=== PATIENT | female | born 1965 ===

== ENCOUNTER 2016-10-01 11:57 | Emergency (ER) | payer BC ==
--- NOTE | 2016-10-01 14:06 | UC ---
Throat Pain/Nasal Javi HPI - HPI Summary HPI Summary: complaint of sore throat that started approx 1 week ago nasal congestion and cough that resolved achiness and fever and chills for the first several day taking ibuprofen with some relief vaginal infection and thought it was a yeast infection - chronic yeast infections took diflucan for over a week but it didn't make any difference discharge is itchy with thin yellowish discharge but no foul odor denies dysuria denies abdominal pain, back pain LMP 1.5 weeks ago - History of Current Complaint Chief Complaint: UCRespiratory Stated Complaint: SORE THROAT Time Seen by Provider: 10/01/16 13:42 Hx Obtained From: Patient Hx Last Menstrual Period: 08/04/16 - Allergies/Home Medications Allergies/Adverse Reactions: Allergies Allergy/AdvReac Type Severity Reaction Status Date / Time bee stings Allergy Hives Uncoded 10/01/16 13:38 Home Medications: Home Medications Cetirizine* [ZyrTEC 10 MG TAB*] 10 mg PO DAILY 10/01/16 [History Confirmed 10/01] Tranexamic Acid 1 tab PO TID 10/01/16 [History Confirmed 10/01/16] PMH/Surg Hx/FS Hx/Imm Hx Previously Healthy: Yes - Surgical History Surgical History: Yes Surgery Procedure, Year, and Place: cataracts - Family History Known Family History: Negative: Cardiac Disease, Hypertension, Diabetes - Social History Occupation: Employed Full-time Lives: With Family Alcohol Use: Occasionally Substance Use Type: None Smoking Status (MU): Former Smoker Review of Systems Constitutional: Negative Skin: Negative Eyes: Negative ENT: Sore Throat Respiratory: Negative Cardiovascular: Negative Gastrointestinal: Negative Genitourinary: Other - vaginal discharge Neurovascular: Negative Musculoskeletal: Negative Neurological: Negative All Other Systems Reviewed And Are Negative: Yes Physical Exam Triage Information Reviewed: Yes Appearance: No Pain Distress, Well-Nourished Vital Signs: Initial Vital Signs Temp 97.1 F 10/01/16 13:41 Pulse 63 10/01/16 13:41 Resp 16 10/01/16 13:41 BP 128/89 10/01/16 13:41 Pulse Ox 98 10/01/16 13:41 Vital Signs Reviewed: Yes Eyes: Positive: Conjunctiva Clear ENT: Positive: Pharyngeal erythema, TMs normal, Tonsillar swelling, Tonsillar exudate. Negative: Nasal congestion Dental: Positive: Cervical Lymphadenopathy Respiratory: Positive: Lungs clear, Normal breath sounds, No respiratory distress, No accessory muscle use Cardiovascular: Positive: RRR, No Murmur, Pulses Normal Abdomen Description: Positive: Nontender, No Organomegaly, Soft. Negative: CVA Tenderness (R), CVA Tenderness (L), Distended, Guarding Bowel Sounds: Positive: Present Musculoskeletal: Positive: No Edema Neurological: Positive: Alert Psychological Exam: Normal Skin Exam: Normal - Additional Comments refuses [employer] exam Throat Pain/Nasal Course/Dx - Course Course Of Treatment: exam completed. refuses [employer] exam. will treat for BV, strep throat - Differential Dx/Diagnosis Provider Diagnoses: bacterial vaginosis, strep throat Discharge - Discharge Plan Condition: Stable Disposition: HOME Prescriptions: Penicillin VK TAB 500 MG(NF) [Penicillin VK 500 mg Tab(NF)] 500 mg PO BID #20 tab metroNIDAZOLE VAGINAL 0.75%* 1 applic VAGINAL BEDTIME #1 tube Patient Education Materials: Strep Throat in Children (ED), Bacterial Vaginosis (ED) Referrals: [facility] [place] [facility] [Outside] Additional Instructions: Please start antibiotic and flagyl suppositories as directed Increase fluids and rest Take acetaminophen or ibuprofen for fever or pain Please review your discharge instructions. If your symptoms do not improve please call your primary care provider or return to urgent care
== END 2016-10-01 14:33 | disposition home or self-care (01) ==
LOC: UCEAST 11:57
DX: J02.0 Streptococcal pharyngitis (principal); N76.0 Acute vaginitis; Z87.891 Personal history of nicotine dependence
CPT/HCPCS: 87480; 87510; 87651; 87660; 87661; 99202; G0463

== ENCOUNTER 2020-07-12 15:51 | Observation (INO) ==
[2020-07-12] MEDS ORDERED: Iohexol 300 (CONTRAST) 10 ML SDV IV ONE (19:06)
[2020-07-12] MEDS ORDERED: Ondansetron 4 mg VIAL 2 MG/ML 2 ml VIAL IV ONE (19:26)
[2020-07-12] MEDS ORDERED: NS 0.9% 1000 ml BAG 2,000 ML IV ONE (19:26)
[2020-07-12 19:54] LABS: ABS Eosinophils 0.1 10^3/ul (0-0.6); ABS Lymphocytes 1.2 10^3/ul (1.0-4.8); ABS Monocytes 1.4 10^3/ul (0-0.8); ABS Neutrophils 12.8 10^3/ul (1.5-7.7); Eosinophil % 0.6 %; Hematocrit 33 % (35-47); Hemoglobin 10.9 g/dL (12.0-16.0); Mean Corpuscular HGB Conc 33 g/dL (31-36); Mean Corpuscular Hemoglobin 30 pg (27-31); Mean Corpuscular Volume 90 fL (80-97); Mean Platelet Volume 7.1 fL (7.4-10.4); Platelet Count 432 10^3/uL (150-450); Red Blood Count 3.64 10^6 /uL (3.70-4.87); Red Cell Distribution Width 14 % (10-15); White Blood Count 15.5 10^3/uL (3.5-10.8)
[2020-07-12] MEDS ORDERED: methylPREDNISolone SOD 40 mg/ml 1 ml VIAL IV ONE (20:38)
[2020-07-12] MEDS ORDERED: Ondansetron 4 mg VIAL 2 MG/ML 2 ml VIAL IV PRN (22:11)
[2020-07-12] MEDS ORDERED: methylPREDNISolone SOD 40 mg/ml 1 ml VIAL IV SCH (23:00)
[2020-07-13] MEDS: Morphine 2 MG/ML SYRINGE IV PRN ×5 (01:00→21:33)
[2020-07-13] MEDS: NS 0.9% 1000 ml BAG 1,000 ML IV SCH ×2 (02:37→16:26)
[2020-07-13 04:41] LABS: ABS Lymphocytes 0.6 10^3/ul (1.0-4.8); ABS Monocytes 0.5 10^3/ul (0-0.8); ABS Neutrophils 11.7 10^3/ul (1.5-7.7); Hematocrit 32 % (35-47); Hemoglobin 10.6 g/dL (12.0-16.0); Mean Corpuscular HGB Conc 33 g/dL (31-36); Mean Corpuscular Hemoglobin 30 pg (27-31); Mean Corpuscular Volume 89 fL (80-97); Mean Platelet Volume 7.1 fL (7.4-10.4); Platelet Count 397 10^3/uL (150-450); Red Blood Count 3.55 10^6 /uL (3.70-4.87); Red Cell Distribution Width 13 % (10-15); White Blood Count 12.8 10^3/uL (3.5-10.8)
[2020-07-13 04:47] LABS: INR 1.3 (0.82-1.09)
[2020-07-13 05:00] LABS: BUN/Creatinine Ratio 9.7 (8-20); Calcium 8.7 mg/dL (8.6-10.3); EGFR African American 121.4 (>60); EGFR Non-African American 100.3 (>60)
[2020-07-13] MEDS: methylPREDNISolone SOD 40 mg/ml 1 ml VIAL IV SCH ×2 (08:41→21:32)
[2020-07-13 09:22] LABS: C Reactive Protein 152.65 mg/L (<8.01)
[2020-07-13 15:13] LABS: Hepatitis C Antibody Negative (Negative)
[2020-07-14] MEDS: NS 0.9% 1000 ml BAG 1,000 ML IV SCH ×2 (02:33→16:15)
[2020-07-14] MEDS: Morphine 2 MG/ML SYRINGE IV PRN (03:48)
[2020-07-14] MEDS: methylPREDNISolone SOD 40 mg/ml 1 ml VIAL IV SCH (10:03)
[2020-07-14] MEDS ORDERED: methylPREDNISolone SOD 40 mg/ml 1 ml VIAL IV ONE (17:00)
[2020-07-14 18:24] VITALS: BP 118/70
[2020-07-15 14:01] LABS: CMV DNA DETECT/QT, P Undetected IU/mL (Undetected)
[2020-07-15 16:32] LABS: Hepatitis C Genotype Undetected (Undetected)
== END 2020-07-14 19:45 | disposition home or self-care (01) ==
LOC: MEDTELE 15:51 → ED 15:51 → MEDTELE 07-13 02:20
PROVIDERS: ADMIT Internal Medicine; ATTEND Pediatrics

== ENCOUNTER 2020-07-16 15:52 | Inpatient (IN) ==
[2020-07-16 17:25] LABS: Hematocrit 31 % (35-47); Hemoglobin 10.6 g/dL (12.0-16.0); Mean Corpuscular HGB Conc 35 g/dL (31-36); Mean Corpuscular Hemoglobin 31 pg (27-31); Mean Corpuscular Volume 89 fL (80-97); Mean Platelet Volume 6.8 fL (7.4-10.4); Platelet Count 524 10^3/uL (150-450); Red Blood Count 3.44 10^6 /uL (3.70-4.87); Red Cell Distribution Width 14 % (10-15); White Blood Count 12.7 10^3/uL (3.5-10.8)
[2020-07-16 17:26] LABS: ABS Lymphocytes 0.8 10^3/ul (1.0-4.8); ABS Monocytes 1.9 10^3/ul (0-0.8); Lymphocyte % 6.3 %
[2020-07-16] MEDS ORDERED: Morphine 4 MG/ML VIAL (1 ml) IV ONE (17:42)
[2020-07-16 17:43] LABS: Albumin 2.8 g/dL (3.2-5.2); Albumin/Globulin Ratio 0.9 (1-3); C Reactive Protein 134.15 mg/L (<8.01); Calcium 8.5 mg/dL (8.6-10.3); EGFR African American 100.5 (>60); EGFR Non-African American 83.1 (>60); Potassium 3.8 mmol/L (3.5-5.0); Total Bilirubin 0.3 mg/dL (0.2-1.0); Total Protein 5.8 g/dL (6.4-8.9)
[2020-07-16] MEDS ORDERED: methylPREDNISolone SOD 40 mg/ml 1 ml VIAL IV ONE (17:52)
[2020-07-16] MEDS: NS 0.9% 1000 ml BAG 1,000 ML IV SCH (21:36)
[2020-07-16] MEDS: Morphine 2 MG/ML SYRINGE IV PRN ×2 (21:45→23:50)
[2020-07-16] MEDS: Enoxaparin 40 MG/0.4 ML SYR SUBCUT SCH (21:45)
[2020-07-17] MEDS: Morphine 2 MG/ML SYRINGE IV PRN ×6 (03:13→20:55)
[2020-07-17 06:51] LABS: Hematocrit 30 % (35-47); Hemoglobin 10.3 g/dL (12.0-16.0); Mean Corpuscular HGB Conc 34 g/dL (31-36); Mean Corpuscular Hemoglobin 31 pg (27-31); Mean Corpuscular Volume 90 fL (80-97); Platelet Count 516 10^3/uL (150-450); Red Blood Count 3.36 10^6 /uL (3.70-4.87); Red Cell Distribution Width 14 % (10-15); White Blood Count 10.6 10^3/uL (3.5-10.8)
[2020-07-17 06:59] LABS: ABS Monocytes 1.7 10^3/ul (0-0.8); ABS Neutrophils 7.9 10^3/ul (1.5-7.7); Eosinophil % 0.1 %; Lymphocyte % 9.8 %
[2020-07-17 07:08] LABS: BUN/Creatinine Ratio 12.9 (8-20); C Reactive Protein 128.35 mg/L (<8.01); Calcium 8.2 mg/dL (8.6-10.3); EGFR African American 121.4 (>60); EGFR Non-African American 100.3 (>60); Potassium 3.8 mmol/L (3.5-5.0)
[2020-07-17] MEDS ORDERED: methylPREDNISolone SOD 40 mg/ml 1 ml VIAL IV SCH (09:00)
[2020-07-17] MEDS: NS 0.9% 1000 ml BAG 1,000 ML IV SCH (09:16)
[2020-07-17] MEDS: methylPREDNISolone SOD 40 mg/ml 1 ml VIAL IV SCH ×2 (13:21→20:54)
[2020-07-17 15:42] LABS: Urine Appearance Clear; Urine Bilirubin Negative (Negative); Urine Blood Negative (Negative); Urine Color Yellow; Urine Glucose Negative (Negative); Urine Ketones Negative (Negative); Urine Nitrite Negative (Negative); Urine Protein Negative (Negative); Urine Urobilinogen Negative (Negative)
[2020-07-17] MEDS ORDERED: Polyethylene Glycol 3350 17 GM PACKET PO PRN (16:10)
[2020-07-17] MEDS: Enoxaparin 40 MG/0.4 ML SYR SUBCUT SCH (20:51)
[2020-07-18] MEDS: Morphine 2 MG/ML SYRINGE IV PRN ×5 (02:07→20:56)
[2020-07-18 05:30] LABS: Hematocrit 32 % (35-47); Hemoglobin 10.6 g/dL (12.0-16.0); Mean Corpuscular HGB Conc 33 g/dL (31-36); Mean Corpuscular Hemoglobin 30 pg (27-31); Mean Corpuscular Volume 89 fL (80-97); Platelet Count 609 10^3/uL (150-450); Red Blood Count 3.58 10^6 /uL (3.70-4.87); Red Cell Distribution Width 14 % (10-15); White Blood Count 12.6 10^3/uL (3.5-10.8)
[2020-07-18] MEDS: methylPREDNISolone SOD 40 mg/ml 1 ml VIAL IV SCH ×3 (09:41→22:13)
[2020-07-18 15:32] LABS: Hepatitis B Surface Antigen Nonreactive (Nonreactive)
[2020-07-18] MEDS: Enoxaparin 40 MG/0.4 ML SYR SUBCUT SCH (20:07)
[2020-07-19] MEDS: Morphine 2 MG/ML SYRINGE IV PRN ×4 (00:12→10:34)
[2020-07-19 05:57] LABS: Hematocrit 31 % (35-47); Hemoglobin 10.3 g/dL (12.0-16.0); Mean Corpuscular HGB Conc 33 g/dL (31-36); Mean Corpuscular Hemoglobin 30 pg (27-31); Mean Corpuscular Volume 91 fL (80-97); Mean Platelet Volume 6.9 fL (7.4-10.4); Platelet Count 635 10^3/uL (150-450); Red Blood Count 3.42 10^6 /uL (3.70-4.87); Red Cell Distribution Width 14 % (10-15); White Blood Count 9.5 10^3/uL (3.5-10.8)
[2020-07-19] MEDS: methylPREDNISolone SOD 40 mg/ml 1 ml VIAL IV SCH ×3 (06:39→22:09)
[2020-07-19 07:02] LABS: ABS Lymphocytes 0.8 10^3/ul (1.0-4.8); ABS Monocytes 1.5 10^3/ul (0-0.8); ABS Neutrophils 7.2 10^3/ul (1.5-7.7); Nucleated Red Blood Cells % 0.1; Polychromasia 1+
[2020-07-19] MEDS: oxyCODONE/Acetamin 5/325 mg TAB PO PRN ×2 (14:24→22:07)
[2020-07-19] MEDS: Enoxaparin 40 MG/0.4 ML SYR SUBCUT SCH (21:20)
[2020-07-20] MEDS: oxyCODONE/Acetamin 5/325 mg TAB PO PRN ×4 (04:18→19:34)
[2020-07-20 05:51] LABS: Hematocrit 31 % (35-47); Hemoglobin 10.5 g/dL (12.0-16.0); Mean Corpuscular HGB Conc 33 g/dL (31-36); Mean Corpuscular Hemoglobin 30 pg (27-31); Mean Corpuscular Volume 91 fL (80-97); Platelet Count 742 10^3/uL (150-450); Red Blood Count 3.47 10^6 /uL (3.70-4.87); Red Cell Distribution Width 14 % (10-15); White Blood Count 10.8 10^3/uL (3.5-10.8)
[2020-07-20 06:13] LABS: C Reactive Protein 83.89 mg/L (<8.01); Calcium 8.7 mg/dL (8.6-10.3); EGFR African American 100.5 (>60); EGFR Non-African American 83.1 (>60); Potassium 4.1 mmol/L (3.5-5.0)
[2020-07-20 06:27] LABS: ABS Lymphocytes 0.9 10^3/ul (1.0-4.8); ABS Monocytes 1.3 10^3/ul (0-0.8); ABS Neutrophils 8.5 10^3/ul (1.5-7.7); Lymphocyte % 8.6 %
[2020-07-20] MEDS: methylPREDNISolone SOD 40 mg/ml 1 ml VIAL IV SCH ×3 (07:00→22:30)
[2020-07-20] MEDS: Enoxaparin 40 MG/0.4 ML SYR SUBCUT SCH (18:17)
[2020-07-20] MEDS ORDERED: Morphine 2 MG/ML SYRINGE IV PRN (18:58)
[2020-07-20] MEDS ORDERED: oxyCODONE/Acetamin 5/325 mg TAB PO PRN (23:46)
[2020-07-21] MEDS: methylPREDNISolone SOD 40 mg/ml 1 ml VIAL IV SCH ×3 (07:41→20:35)
[2020-07-21 10:34] LABS: Hematocrit 33 % (35-47); Hemoglobin 10.7 g/dL (12.0-16.0); Mean Corpuscular HGB Conc 33 g/dL (31-36); Mean Corpuscular Hemoglobin 29 pg (27-31); Mean Corpuscular Volume 90 fL (80-97); Mean Platelet Volume 6.9 fL (7.4-10.4); Platelet Count 741 10^3/uL (150-450); Red Blood Count 3.67 10^6 /uL (3.70-4.87); Red Cell Distribution Width 14 % (10-15); White Blood Count 13.2 10^3/uL (3.5-10.8)
[2020-07-21] MEDS ORDERED: inFLIXimab-DYYB (Inflectra) 100 MG/10 ML VIAL IVPB ONE (11:29)
[2020-07-21] MEDS: oxyCODONE/Acetamin 5/325 mg TAB PO PRN ×3 (11:50→20:34)
[2020-07-21] MEDS ORDERED: INFLIXIMAB DYYB IVPB ONE (12:00)
[2020-07-21] MEDS ORDERED: NS 0.9% IVPB ONE (12:00)
[2020-07-21 12:16] LABS: ABS Lymphocytes 0.9 10^3/ul (1.0-4.8); ABS Monocytes 1.1 10^3/ul (0-0.8); ABS Neutrophils 11.2 10^3/ul (1.5-7.7); Eosinophil % 0.1 %; Lymphocyte % 7.1 %; Nucleated Red Blood Cells % 0.1
[2020-07-21] MEDS: Enoxaparin 40 MG/0.4 ML SYR SUBCUT SCH (18:03)
[2020-07-21] MEDS ORDERED: methylPREDNISolone SOD 40 mg/ml 1 ml VIAL IV SCH (18:30)
[2020-07-22] MEDS: oxyCODONE/Acetamin 5/325 mg TAB PO PRN ×5 (01:46→21:30)
[2020-07-22] MEDS: methylPREDNISolone SOD 40 mg/ml 1 ml VIAL IV SCH ×3 (05:23→21:30)
[2020-07-22 07:26] LABS: TB2 Ag minus Nil Result -0.01 IU/mL
[2020-07-22 07:44] LABS: Hematocrit 33 % (35-47); Hemoglobin 11.2 g/dL (12.0-16.0); Mean Corpuscular HGB Conc 34 g/dL (31-36); Mean Corpuscular Hemoglobin 30 pg (27-31); Mean Corpuscular Volume 89 fL (80-97); Platelet Count 760 10^3/uL (150-450); Red Blood Count 3.76 10^6 /uL (3.70-4.87); Red Cell Distribution Width 14 % (10-15); White Blood Count 14.3 10^3/uL (3.5-10.8)
[2020-07-22 08:41] LABS: QuantiferonTb Gold Plus Result Negative (Negative)
[2020-07-22 08:45] LABS: ABS Lymphocytes 1.1 10^3/ul (1.0-4.8); ABS Neutrophils 12.2 10^3/ul (1.5-7.7); Lymphocyte % 7.9 %; Polychromasia 1+
[2020-07-22] MEDS ORDERED: inFLIXimab-DYYB (Inflectra) 100 MG/10 ML VIAL IVPB ONE (11:25)
[2020-07-22] MEDS ORDERED: NS 0.9% IVPB ONE (12:00)
[2020-07-22] MEDS ORDERED: INFLIXIMAB DYYB IVPB ONE (12:00)
[2020-07-22] MEDS: Enoxaparin 40 MG/0.4 ML SYR SUBCUT SCH (19:44)
[2020-07-23] MEDS: oxyCODONE/Acetamin 5/325 mg TAB PO PRN ×5 (02:39→21:40)
[2020-07-23] MEDS: methylPREDNISolone SOD 40 mg/ml 1 ml VIAL IV SCH ×3 (07:39→21:32)
[2020-07-23] MEDS ORDERED: methylPREDNISolone SOD 40 mg/ml 1 ml VIAL IV ONE (08:43)
[2020-07-23] MEDS: oxyCODONE SR 10 mg TAB PO SCH ×2 (09:04→21:33)
[2020-07-23] MEDS: Enoxaparin 40 MG/0.4 ML SYR SUBCUT SCH (21:31)
[2020-07-24] MEDS: oxyCODONE/Acetamin 5/325 mg TAB PO PRN ×7 (00:26→22:27)
[2020-07-24 05:51] LABS: Hematocrit 33 % (35-47); Mean Corpuscular HGB Conc 33 g/dL (31-36); Mean Corpuscular Hemoglobin 30 pg (27-31); Mean Corpuscular Volume 89 fL (80-97); Mean Platelet Volume 6.7 fL (7.4-10.4); Platelet Count 704 10^3/uL (150-450); Red Cell Distribution Width 14 % (10-15); White Blood Count 13.8 10^3/uL (3.5-10.8)
[2020-07-24 06:04] LABS: Albumin 2.8 g/dL (3.2-5.2); Albumin/Globulin Ratio 0.9 (1-3); C Reactive Protein 87.09 mg/L (<8.01); Calcium 8.8 mg/dL (8.6-10.3); EGFR African American 105.5 (>60); EGFR Non-African American 87.2 (>60); Globulin 3.1 g/dL (2-4); Potassium 4.3 mmol/L (3.5-5.0); Total Bilirubin 0.3 mg/dL (0.2-1.0); Total Protein 5.9 g/dL (6.4-8.9)
[2020-07-24] MEDS: methylPREDNISolone SOD 40 mg/ml 1 ml VIAL IV SCH ×3 (06:04→21:30)
[2020-07-24] MEDS: oxyCODONE SR 10 mg TAB PO SCH ×2 (09:02→21:29)
[2020-07-24] MEDS: Enoxaparin 40 MG/0.4 ML SYR SUBCUT SCH (16:14)
[2020-07-24] MEDS ORDERED: NS 0.9% 250 ml 250 ML IV SCH (17:00)
[2020-07-25] MEDS: oxyCODONE/Acetamin 5/325 mg TAB PO PRN ×3 (01:29→07:54)
[2020-07-25] MEDS: methylPREDNISolone SOD 40 mg/ml 1 ml VIAL IV SCH ×3 (05:37→22:47)
[2020-07-25 07:46] LABS: Hematocrit 33 % (35-47); Hemoglobin 11.1 g/dL (12.0-16.0); Mean Corpuscular HGB Conc 34 g/dL (31-36); Mean Corpuscular Hemoglobin 30 pg (27-31); Mean Corpuscular Volume 88 fL (80-97); Mean Platelet Volume 6.5 fL (7.4-10.4); Platelet Count 633 10^3/uL (150-450); Red Blood Count 3.78 10^6 /uL (3.70-4.87); Red Cell Distribution Width 14 % (10-15); White Blood Count 18.4 10^3/uL (3.5-10.8)
[2020-07-25 08:04] LABS: C Reactive Protein 230.19 mg/L (<8.01); Calcium 8.7 mg/dL (8.6-10.3); EGFR African American 103.8 (>60); EGFR Non-African American 85.8 (>60); Potassium 4.2 mmol/L (3.5-5.0)
[2020-07-25] MEDS: oxyCODONE SR 10 mg TAB PO SCH (09:56)
[2020-07-25] MEDS ORDERED: inFLIXimab-DYYB (Inflectra) 100 MG/10 ML VIAL IVPB ONE (10:18)
[2020-07-25] MEDS ORDERED: INFLIXIMAB DYYB IVPB ONE (11:00)
[2020-07-25] MEDS ORDERED: NS 0.9% IVPB ONE (11:00)
[2020-07-25] MEDS ORDERED: Piperacillin/Tazobac ADVAN 3.375 GM in NS 0.9% 100 ml BAG 100 ML IV ONE (11:30)
[2020-07-25] MEDS: NS 0.9% 1000 ml BAG 1,000 ML IV SCH ×2 (11:51→19:35)
[2020-07-25] MEDS ORDERED: Morphine 2 MG/ML SYRINGE IV PRN (12:53)
[2020-07-25] MEDS ORDERED: Midazolam 2 mg/2 ml VIAL 1 mg/ml 2 ml VIAL (2 mg) ONE (13:06)
[2020-07-25] MEDS ORDERED: fentaNYL 250 mcg/5 ml 50 MCG/ML 5 ml VIAL (250 MCG) ONE (13:06)
[2020-07-25] MEDS ORDERED: Rocuronium 50 mg VIAL 10 mg/ml 5 ml VIAL (50 mg) ONE ×3 (13:07→16:50)
[2020-07-25] MEDS ORDERED: Lidocaine 2% PF 5 ML VIAL ONE (13:13)
[2020-07-25] MEDS ORDERED: Propofol 10 MG/ML 20 ML BTL ONE (13:13)
[2020-07-25] MEDS ORDERED: Bupivacaine 0.25% SDV 30 ML ONE (13:36)
[2020-07-25] MEDS ORDERED: Dexamethasone IV 4 MG/ML VIAL 1 ml VIAL ONE (15:06)
[2020-07-25] MEDS ORDERED: HYDROmorphone 1 MG/1 ML SYRINGE ONE ×2 (15:25→18:10)
[2020-07-25] MEDS ORDERED: fentaNYL 100 mcg/2 ml 50 MCG/ML VIAL ONE ×4 (16:14→18:39)
[2020-07-25] MEDS ORDERED: Ondansetron 4 mg VIAL 2 MG/ML 2 ml VIAL ONE (16:57)
[2020-07-25] MEDS ORDERED: Acetaminophen IV 1 GM/100ML 100 ML ONE (16:59)
[2020-07-25] MEDS ORDERED: Ondansetron 4 mg VIAL 2 MG/ML 2 ml VIAL IV PRN (17:45)
[2020-07-25] MEDS ORDERED: Naloxone 0.4 mg VIAL 0.4 mg/ml 1 ml VIAL IV PRN (17:45)
[2020-07-25] MEDS ORDERED: Naloxone 0.4 mg VIAL 0.4 mg/ml 1 ml VIAL IV PUSH PRN (17:55)
[2020-07-25] MEDS: fentaNYL 100 mcg/2 ml 50 MCG/ML VIAL IV PRN ×5 (17:58→18:40)
[2020-07-25] MEDS ORDERED: HYDROmorphone 0.5 MG/0.5 ML SYRINGE IV SLOW PU PRN (18:00)
[2020-07-25] MEDS: HYDROmorphone 1 MG/1 ML SYRINGE IV PRN ×2 (18:12→18:23)
[2020-07-25] MEDS ORDERED: HYDROmorphone PCA 20 MG/20 ML PCA.SYRING PCA SCH (18:30)
[2020-07-25] MEDS ORDERED: ZOSYN 3.375 GM x ONE DOSE over 30 miuntes IV (20:00)
[2020-07-25] MEDS: Enoxaparin 40 MG/0.4 ML SYR SUBCUT SCH (21:47)
[2020-07-25] MEDS: Acetaminophen IV 1 GM/100ML 100 ML IVPB SCH (22:48)
[2020-07-26] MEDS: ZOSYN 3.375 GM Q8H per EXTENDED INFUSION IV SCH ×4 (00:29→23:41)
[2020-07-26 04:57] LABS: ABS Lymphocytes 0.3 10^3/ul (1.0-4.8); ABS Monocytes 0.2 10^3/ul (0-0.8); ABS Neutrophils 19.3 10^3/ul (1.5-7.7); Hematocrit 29 % (35-47); Hemoglobin 9.5 g/dL (12.0-16.0); Lymphocyte % 1.5 %; Mean Corpuscular HGB Conc 32 g/dL (31-36); Mean Corpuscular Hemoglobin 29 pg (27-31); Mean Corpuscular Volume 90 fL (80-97); Mean Platelet Volume 6.7 fL (7.4-10.4); Platelet Count 500 10^3/uL (150-450); Red Blood Count 3.25 10^6 /uL (3.70-4.87); Red Cell Distribution Width 14 % (10-15); White Blood Count 19.8 10^3/uL (3.5-10.8)
[2020-07-26 05:16] LABS: Calcium 7.8 mg/dL (8.6-10.3); EGFR African American 136.5 (>60); EGFR Non-African American 112.8 (>60); Potassium 4.2 mmol/L (3.5-5.0)
[2020-07-26] MEDS: NS 0.9% 1000 ml BAG 1,000 ML IV SCH (05:39)
[2020-07-26] MEDS: Acetaminophen IV 1 GM/100ML 100 ML IVPB SCH ×2 (05:41→14:58)
[2020-07-26] MEDS: methylPREDNISolone SOD 40 mg/ml 1 ml VIAL IV SCH ×2 (05:41→18:04)
[2020-07-26] MEDS ORDERED: NS 0.9% 1000 ml BAG 1,000 ML IV SCH (07:11)
[2020-07-26] MEDS: Enoxaparin 40 MG/0.4 ML SYR SUBCUT SCH (17:40)
[2020-07-27 05:51] LABS: ABS Lymphocytes 0.5 10^3/ul (1.0-4.8); ABS Monocytes 0.5 10^3/ul (0-0.8); ABS Neutrophils 16.6 10^3/ul (1.5-7.7); Hematocrit 24 % (35-47); Lymphocyte % 2.6 %; Mean Corpuscular HGB Conc 33 g/dL (31-36); Mean Corpuscular Hemoglobin 30 pg (27-31); Mean Corpuscular Volume 90 fL (80-97); Mean Platelet Volume 6.6 fL (7.4-10.4); Platelet Count 440 10^3/uL (150-450); Red Cell Distribution Width 14 % (10-15); White Blood Count 17.5 10^3/uL (3.5-10.8)
[2020-07-27] MEDS: methylPREDNISolone SOD 40 mg/ml 1 ml VIAL IV SCH ×2 (06:07→17:18)
[2020-07-27 06:10] LABS: EGFR African American 180.3 (>60); Potassium 4.2 mmol/L (3.5-5.0)
[2020-07-27] MEDS: ZOSYN 3.375 GM Q8H per EXTENDED INFUSION IV SCH ×2 (08:33→16:17)
[2020-07-27] MEDS ORDERED: HYDROcodone/ACETAMIN 5/325 mg TAB PO PRN (09:03)
[2020-07-27] MEDS: Enoxaparin 40 MG/0.4 ML SYR SUBCUT SCH (16:21)
[2020-07-28] MEDS: ZOSYN 3.375 GM Q8H per EXTENDED INFUSION IV SCH ×3 (00:15→16:07)
[2020-07-28] MEDS: HYDROmorphone 0.5 MG/0.5 ML SYRINGE IV SLOW PU PRN (03:42)
[2020-07-28 05:49] LABS: Hematocrit 25 % (35-47); Hemoglobin 8.2 g/dL (12.0-16.0); Mean Corpuscular HGB Conc 33 g/dL (31-36); Mean Corpuscular Hemoglobin 29 pg (27-31); Mean Corpuscular Volume 88 fL (80-97); Mean Platelet Volume 6.7 fL (7.4-10.4); Platelet Count 459 10^3/uL (150-450); Red Cell Distribution Width 14 % (10-15); White Blood Count 11.7 10^3/uL (3.5-10.8)
[2020-07-28 06:06] LABS: Calcium 8.2 mg/dL (8.6-10.3); EGFR African American 155.6 (>60); EGFR Non-African American 128.6 (>60); Potassium 4.1 mmol/L (3.5-5.0)
[2020-07-28 07:15] LABS: ABS Lymphocytes 0.7 10^3/ul (1.0-4.8); ABS Monocytes 0.8 10^3/ul (0-0.8); ABS Neutrophils 10.2 10^3/ul (1.5-7.7); Lymphocyte % 5.9 %
[2020-07-28] MEDS: HYDROmorphone 1 MG/1 ML SYRINGE IV SLOW PU PRN (07:27)
[2020-07-28] MEDS: methylPREDNISolone SOD 40 mg/ml 1 ml VIAL IV SCH (09:23)
[2020-07-28] MEDS: Enoxaparin 40 MG/0.4 ML SYR SUBCUT SCH (16:07)
[2020-07-29] MEDS: ZOSYN 3.375 GM Q8H per EXTENDED INFUSION IV SCH ×4 (00:15→23:47)
[2020-07-29] MEDS: methylPREDNISolone SOD 40 mg/ml 1 ml VIAL IV SCH (08:25)
[2020-07-29] MEDS: HYDROmorphone 0.5 MG/0.5 ML SYRINGE IV SLOW PU PRN (11:59)
[2020-07-29] MEDS: Enoxaparin 40 MG/0.4 ML SYR SUBCUT SCH (17:42)
[2020-07-30] MEDS: ZOSYN 3.375 GM Q8H per EXTENDED INFUSION IV SCH ×2 (08:20→16:27)
[2020-07-30 10:22] LABS: Hematocrit 24 % (35-47); Mean Corpuscular HGB Conc 33 g/dL (31-36); Mean Corpuscular Hemoglobin 29 pg (27-31); Mean Corpuscular Volume 89 fL (80-97); Mean Platelet Volume 6.4 fL (7.4-10.4); Platelet Count 550 10^3/uL (150-450); Red Blood Count 2.75 10^6 /uL (3.70-4.87); Red Cell Distribution Width 14 % (10-15); White Blood Count 24.7 10^3/uL (3.5-10.8)
[2020-07-30 10:23] LABS: ABS Eosinophils 0.1 10^3/ul (0-0.6); ABS Monocytes 0.5 10^3/ul (0-0.8); ABS Neutrophils 23.1 10^3/ul (1.5-7.7); Eosinophil % 0.5 %; Lymphocyte % 3.9 %
[2020-07-30 10:44] LABS: Anion Gap 6 mmol/L (2-11); Blood Urea Nitrogen 9 mg/dL (6-24); C Reactive Protein 193.41 mg/L (<8.01); CO2 Carbon Dioxide 29 mmol/L (22-32); Calcium 8.2 mg/dL (8.6-10.3); Chloride 103 mmol/L (101-111); EGFR African American 131.1 (>60); EGFR Non-African American 108.3 (>60); Glucose 97 mg/dL (70-100); Potassium 3.6 mmol/L (3.5-5.0); Sodium 138 mmol/L (135-145)
[2020-07-30 12:10] LABS: Total Iron Binding Capacity 202 mcg/dL (250-450); Transferrin 144 mg/dL (203-362)
[2020-07-30 12:14] LABS: % Iron Saturation 10 % (15-55); Iron < 20 ug/dL (50-212); Unsaturated Iron Binding < 187 ug/dL
[2020-07-30 12:35] LABS: Vitamin B12 1190 pg/mL (180-914)
[2020-07-30] MEDS: HYDROmorphone 0.5 MG/0.5 ML SYRINGE IV SLOW PU PRN ×2 (13:29→21:49)
[2020-07-30] MEDS ORDERED: LACTATED RINGERS IV SCH (16:00)
[2020-07-30] MEDS: Enoxaparin 40 MG/0.4 ML SYR SUBCUT SCH (17:21)
[2020-07-30] MEDS ORDERED: Iohexol 300 (CONTRAST) 10 ML SDV IV ONE (17:40)
[2020-07-30] MEDS: Cefepime 2 GM in Dextrose 2 GM/50 ML BAG IV SCH (17:52)
[2020-07-30 18:41] LABS: Urine Appearance Clear; Urine Bilirubin Negative (Negative); Urine Blood Negative (Negative); Urine Color Yellow; Urine Glucose Negative (Negative); Urine Ketones Negative (Negative); Urine Nitrite Negative (Negative); Urine Protein Negative (Negative); Urine Specific Gravity 1.013 (1.002-1.030); Urine Urobilinogen Negative (Negative)
[2020-07-30] MEDS: metroNIDAZOLE IV 500 MG/100ML 500 MG/100 ML BAG IVPB SCH ×2 (20:09→23:51)
[2020-07-31] MEDS: Cefepime 2 GM in Dextrose 2 GM/50 ML BAG IV SCH ×2 (04:39→17:18)
[2020-07-31 05:15] LABS: Hematocrit 27 % (35-47); Hemoglobin 8.8 g/dL (12.0-16.0); Mean Corpuscular HGB Conc 32 g/dL (31-36); Mean Corpuscular Hemoglobin 29 pg (27-31); Mean Corpuscular Volume 90 fL (80-97); Mean Platelet Volume 6.4 fL (7.4-10.4); Platelet Count 596 10^3/uL (150-450); Red Blood Count 3.06 10^6 /uL (3.70-4.87); Red Cell Distribution Width 15 % (10-15); White Blood Count 33.1 10^3/uL (3.5-10.8)
[2020-07-31 05:17] LABS: ABS Eosinophils 0.2 10^3/ul (0-0.6); ABS Lymphocytes 0.9 10^3/ul (1.0-4.8); ABS Monocytes 0.5 10^3/ul (0-0.8); ABS Neutrophils 31.4 10^3/ul (1.5-7.7); Eosinophil % 0.6 %; Lymphocyte % 2.8 %
[2020-07-31 05:33] LABS: Blood Urea Nitrogen 7 mg/dL (6-24); CO2 Carbon Dioxide 29 mmol/L (22-32); Calcium 8.6 mg/dL (8.6-10.3); Chloride 104 mmol/L (101-111); EGFR African American 152.1 (>60); EGFR Non-African American 125.7 (>60); Glucose 91 mg/dL (70-100); Sodium 139 mmol/L (135-145)
[2020-07-31 05:57] LABS: Anion Gap 6 mmol/L (2-11)
[2020-07-31 06:24] LABS: Potassium Redraw 3.8 mmol/L (3.5-5.0)
[2020-07-31 07:16] LABS: Magnesium 1.6 mg/dL (1.9-2.7)
[2020-07-31] MEDS: metroNIDAZOLE IV 500 MG/100ML 500 MG/100 ML BAG IVPB SCH ×2 (08:55→18:11)
[2020-07-31] MEDS ORDERED: Magnesium Sulf 4 GM/100 ML IV 4,000 MG/100 ML BAG IVPB ONE (10:30)
[2020-07-31] MEDS: Enoxaparin 40 MG/0.4 ML SYR SUBCUT SCH (17:23)
[2020-08-01] MEDS: metroNIDAZOLE IV 500 MG/100ML 500 MG/100 ML BAG IVPB SCH ×3 (00:24→17:42)
[2020-08-01] MEDS: HYDROmorphone 0.5 MG/0.5 ML SYRINGE IV SLOW PU PRN ×2 (03:59→14:14)
[2020-08-01] MEDS: Cefepime 2 GM in Dextrose 2 GM/50 ML BAG IV SCH ×2 (04:02→16:09)
[2020-08-01 06:02] LABS: ABS Basophils 0.1 10^3/ul (0-0.2); ABS Eosinophils 0.4 10^3/ul (0-0.6); ABS Lymphocytes 0.9 10^3/ul (1.0-4.8); ABS Monocytes 0.5 10^3/ul (0-0.8); ABS Neutrophils 16.2 10^3/ul (1.5-7.7); Hematocrit 21 % (35-47); Hemoglobin 6.9 g/dL (12.0-16.0); Lymphocyte % 5.1 %; Mean Corpuscular HGB Conc 33 g/dL (31-36); Mean Corpuscular Hemoglobin 29 pg (27-31); Mean Corpuscular Volume 89 fL (80-97); Mean Platelet Volume 6.1 fL (7.4-10.4); Platelet Count 548 10^3/uL (150-450); Red Blood Count 2.36 10^6 /uL (3.70-4.87); Red Cell Distribution Width 15 % (10-15); White Blood Count 18.1 10^3/uL (3.5-10.8)
[2020-08-01 06:19] LABS: Calcium 8.1 mg/dL (8.6-10.3); EGFR African American 148.7 (>60); EGFR Non-African American 122.9 (>60); Magnesium 1.9 mg/dL (1.9-2.7); Potassium 3.8 mmol/L (3.5-5.0)
[2020-08-01] MEDS: Iron Sucrose 200 MG in NS 0.9% 100 ml BAG 100 ML IVPB SCH (08:57)
[2020-08-01 17:01] LABS: Hematocrit 25 % (35-47); Hemoglobin 8.3 g/dL (12.0-16.0)
[2020-08-01] MEDS: Enoxaparin 40 MG/0.4 ML SYR SUBCUT SCH (17:52)
[2020-08-01] MEDS: HYDROmorphone 1 MG/1 ML SYRINGE IV SLOW PU PRN (17:53)
[2020-08-02] MEDS: metroNIDAZOLE IV 500 MG/100ML 500 MG/100 ML BAG IVPB SCH ×3 (00:37→17:24)
[2020-08-02] MEDS: Cefepime 2 GM in Dextrose 2 GM/50 ML BAG IV SCH ×2 (04:42→16:33)
[2020-08-02 06:45] LABS: ABS Basophils 0.1 10^3/ul (0-0.2); ABS Eosinophils 0.2 10^3/ul (0-0.6); ABS Monocytes 0.9 10^3/ul (0-0.8); ABS Neutrophils 18.5 10^3/ul (1.5-7.7); Hematocrit 26 % (35-47); Hemoglobin 8.5 g/dL (12.0-16.0); Lymphocyte % 4.8 %; Mean Corpuscular HGB Conc 33 g/dL (31-36); Mean Corpuscular Hemoglobin 29 pg (27-31); Mean Corpuscular Volume 88 fL (80-97); Mean Platelet Volume 6.4 fL (7.4-10.4); Platelet Count 626 10^3/uL (150-450); Red Blood Count 2.91 10^6 /uL (3.70-4.87); Red Cell Distribution Width 14 % (10-15); White Blood Count 20.7 10^3/uL (3.5-10.8)
[2020-08-02 06:46] LABS: Calcium 8.4 mg/dL (8.6-10.3); EGFR African American 133.7 (>60); EGFR Non-African American 110.5 (>60); Potassium 3.9 mmol/L (3.5-5.0)
[2020-08-02] MEDS: Iron Sucrose 200 MG in NS 0.9% 100 ml BAG 100 ML IVPB SCH (08:57)
[2020-08-02] MEDS: Ibuprofen ADULT LIQ 600 MG/30 ML UDC PO SCH ×4 (10:47→20:43)
[2020-08-02] MEDS: Enoxaparin 40 MG/0.4 ML SYR SUBCUT SCH (17:24)
[2020-08-03] MEDS: metroNIDAZOLE IV 500 MG/100ML 500 MG/100 ML BAG IVPB SCH ×3 (01:52→17:23)
[2020-08-03] MEDS ORDERED: Magnesium Hydroxide LIQ 30 ML UDC PO PRN (04:07)
[2020-08-03] MEDS ORDERED: Senna TAB 8.6 mg TAB PO PRN (04:07)
[2020-08-03] MEDS: HYDROmorphone 1 MG/1 ML SYRINGE IV SLOW PU PRN (04:47)
[2020-08-03 04:56] LABS: ABS Eosinophils 0.2 10^3/ul (0-0.6); ABS Lymphocytes 1.3 10^3/ul (1.0-4.8); ABS Neutrophils 12.1 10^3/ul (1.5-7.7); Eosinophil % 1.7 %; Hematocrit 26 % (35-47); Hemoglobin 8.4 g/dL (12.0-16.0); Lymphocyte % 9.1 %; Mean Corpuscular HGB Conc 33 g/dL (31-36); Mean Corpuscular Hemoglobin 29 pg (27-31); Mean Corpuscular Volume 88 fL (80-97); Mean Platelet Volume 6.4 fL (7.4-10.4); Platelet Count 652 10^3/uL (150-450); Red Blood Count 2.92 10^6 /uL (3.70-4.87); Red Cell Distribution Width 15 % (10-15); White Blood Count 14.8 10^3/uL (3.5-10.8)
[2020-08-03 05:13] LABS: Calcium 8.6 mg/dL (8.6-10.3); EGFR African American 133.7 (>60); EGFR Non-African American 110.5 (>60); Potassium 3.7 mmol/L (3.5-5.0)
[2020-08-03] MEDS: Cefepime 2 GM in Dextrose 2 GM/50 ML BAG IV SCH ×2 (05:37→16:45)
[2020-08-03] MEDS: Ibuprofen ADULT LIQ 600 MG/30 ML UDC PO SCH (09:11)
[2020-08-03] MEDS: HYDROmorphone 0.5 MG/0.5 ML SYRINGE IV SLOW PU PRN (10:32)
[2020-08-03] MEDS: Iron Sucrose 200 MG in NS 0.9% 100 ml BAG 100 ML IVPB SCH (10:36)
[2020-08-03] MEDS: NS 0.9% 1000 ml BAG 1,000 ML IV SCH (12:52)
[2020-08-03] MEDS: Enoxaparin 40 MG/0.4 ML SYR SUBCUT SCH (17:23)
[2020-08-03] MEDS: Calcium Carb (TUMS) 500 mg CHEW TAB PO SCH (20:22)
[2020-08-04] MEDS: Ondansetron 4 mg VIAL 2 MG/ML 2 ml VIAL IV PRN ×3 (00:52→18:14)
[2020-08-04] MEDS: HYDROmorphone 0.5 MG/0.5 ML SYRINGE IV SLOW PU PRN (00:54)
[2020-08-04] MEDS: metroNIDAZOLE IV 500 MG/100ML 500 MG/100 ML BAG IVPB SCH ×3 (00:57→18:07)
[2020-08-04] MEDS: Cefepime 2 GM in Dextrose 2 GM/50 ML BAG IV SCH ×2 (04:18→16:24)
[2020-08-04] MEDS: Iron Sucrose 200 MG in NS 0.9% 100 ml BAG 100 ML IVPB SCH (09:18)
[2020-08-04] MEDS: Calcium Carb (TUMS) 500 mg CHEW TAB PO SCH ×2 (09:19→22:15)
[2020-08-04] MEDS: NS 0.9% 1000 ml BAG 1,000 ML IV SCH (11:58)
[2020-08-04] MEDS: Enoxaparin 40 MG/0.4 ML SYR SUBCUT SCH (16:24)
[2020-08-04] MEDS ORDERED: Iohexol 300 (CONTRAST) 10 ML SDV IV ONE (20:19)
[2020-08-05] MEDS: metroNIDAZOLE IV 500 MG/100ML 500 MG/100 ML BAG IVPB SCH ×3 (00:11→17:15)
[2020-08-05] MEDS: Cefepime 2 GM in Dextrose 2 GM/50 ML BAG IV SCH ×2 (04:52→16:35)
[2020-08-05 06:49] LABS: Hematocrit 22 % (35-47); Hemoglobin 7.4 g/dL (12.0-16.0); Mean Corpuscular HGB Conc 33 g/dL (31-36); Mean Corpuscular Hemoglobin 30 pg (27-31); Mean Corpuscular Volume 89 fL (80-97); Mean Platelet Volume 6.4 fL (7.4-10.4); Platelet Count 583 10^3/uL (150-450); Red Blood Count 2.51 10^6 /uL (3.70-4.87); Red Cell Distribution Width 15 % (10-15)
[2020-08-05 07:08] LABS: Albumin 2.1 g/dL (3.2-5.2); Albumin/Globulin Ratio 0.7 (1-3); C Reactive Protein 86.2 mg/L (<8.01); Calcium 7.8 mg/dL (8.6-10.3); EGFR African American 159.2 (>60); EGFR Non-African American 131.6 (>60); Magnesium 1.8 mg/dL (1.9-2.7); Phosphorus 2.7 mg/dL (2.5-5.0); Potassium 3.6 mmol/L (3.5-5.0); Total Bilirubin 0.3 mg/dL (0.2-1.0); Total Protein 5.1 g/dL (6.4-8.9)
[2020-08-05] MEDS: Ondansetron 4 mg VIAL 2 MG/ML 2 ml VIAL IV PRN (07:08)
[2020-08-05 07:12] LABS: ABS Basophils 0.1 10^3/ul (0-0.2); ABS Eosinophils 0.1 10^3/ul (0-0.6); ABS Lymphocytes 0.9 10^3/ul (1.0-4.8); ABS Monocytes 1.1 10^3/ul (0-0.8); ABS Neutrophils 10.8 10^3/ul (1.5-7.7); Eosinophil % 1.1 %; Lymphocyte % 6.6 %
[2020-08-05] MEDS: Iron Sucrose 200 MG in NS 0.9% 100 ml BAG 100 ML IVPB SCH (07:57)
[2020-08-05] MEDS ORDERED: Potassium Chlor 20 meq TAB.ER PO ONE (08:57)
[2020-08-05] MEDS: Calcium Carb (TUMS) 500 mg CHEW TAB PO SCH ×2 (09:17→21:10)
[2020-08-05] MEDS: Metoclopramide 5 MG/ML VIAL (10 mg) IV SLOW PU SCH ×3 (09:40→21:10)
[2020-08-05] MEDS: NS 0.9% 1000 ml BAG 1,000 ML IV SCH (14:51)
[2020-08-05] MEDS: Enoxaparin 40 MG/0.4 ML SYR SUBCUT SCH (17:47)
[2020-08-05] MEDS: HYDROmorphone 0.5 MG/0.5 ML SYRINGE IV SLOW PU PRN (23:34)
[2020-08-06] MEDS: metroNIDAZOLE IV 500 MG/100ML 500 MG/100 ML BAG IVPB SCH ×2 (01:48→08:50)
[2020-08-06] MEDS: Metoclopramide 5 MG/ML VIAL (10 mg) IV SLOW PU SCH ×2 (05:07→08:40)
[2020-08-06] MEDS: Cefepime 2 GM in Dextrose 2 GM/50 ML BAG IV SCH (05:12)
[2020-08-06] MEDS: Calcium Carb (TUMS) 500 mg CHEW TAB PO SCH (07:18)
[2020-08-06 07:30] LABS: Hematocrit 24 % (35-47); Mean Corpuscular HGB Conc 33 g/dL (31-36); Mean Corpuscular Hemoglobin 29 pg (27-31); Mean Corpuscular Volume 89 fL (80-97); Mean Platelet Volume 6.3 fL (7.4-10.4); Platelet Count 591 10^3/uL (150-450); Red Blood Count 2.74 10^6 /uL (3.70-4.87); Red Cell Distribution Width 15 % (10-15); White Blood Count 15.1 10^3/uL (3.5-10.8)
[2020-08-06 07:48] LABS: Calcium 7.6 mg/dL (8.6-10.3); EGFR African American 159.2 (>60); EGFR Non-African American 131.6 (>60); Magnesium 1.7 mg/dL (1.9-2.7); Potassium 3.6 mmol/L (3.5-5.0)
[2020-08-06] MEDS: Pantoprazole VIAL 40 MG VIAL IV SCH (08:52)
[2020-08-06] MEDS ORDERED: Magnesium Sulfate 2 gm BAG 2 GM/50 ML BAG IVPB ONE (09:10)
[2020-08-06] MEDS: Enoxaparin 40 MG/0.4 ML SYR SUBCUT SCH (16:58)
[2020-08-06] MEDS: HYDROmorphone 0.5 MG/0.5 ML SYRINGE IV SLOW PU PRN (21:55)
[2020-08-07 06:03] LABS: Hematocrit 26 % (35-47); Hemoglobin 8.6 g/dL (12.0-16.0); Mean Corpuscular HGB Conc 34 g/dL (31-36); Mean Corpuscular Hemoglobin 30 pg (27-31); Mean Corpuscular Volume 89 fL (80-97); Mean Platelet Volume 6.5 fL (7.4-10.4); Platelet Count 677 10^3/uL (150-450); Red Blood Count 2.89 10^6 /uL (3.70-4.87); Red Cell Distribution Width 15 % (10-15); White Blood Count 12.7 10^3/uL (3.5-10.8)
[2020-08-07 06:18] LABS: ABS Basophils 0.1 10^3/ul (0-0.2); ABS Eosinophils 0.2 10^3/ul (0-0.6); ABS Lymphocytes 1.1 10^3/ul (1.0-4.8); ABS Neutrophils 10.2 10^3/ul (1.5-7.7); Eosinophil % 1.4 %
[2020-08-07] MEDS: Pantoprazole VIAL 40 MG VIAL IV SCH (09:16)
[2020-08-07] MEDS: Enoxaparin 40 MG/0.4 ML SYR SUBCUT SCH (17:15)
[2020-08-08 09:56] LABS: Blood Urea Nitrogen 4 mg/dL (6-24); CO2 Carbon Dioxide 28 mmol/L (22-32); Calcium 8.3 mg/dL (8.6-10.3); Chloride 105 mmol/L (101-111); EGFR African American 179.6 (>60); EGFR Non-African American 148.5 (>60); Glucose 96 mg/dL (70-100); Magnesium 1.7 mg/dL (1.9-2.7); Sodium 139 mmol/L (135-145)
[2020-08-08 10:18] LABS: Anion Gap 6 mmol/L (2-11)
[2020-08-08] MEDS ORDERED: Magnesium Sulfate IV 3 GM in NS 0.9% 100 ml BAG 100 ML IVPB ONE (11:09)
[2020-08-08 11:22] VITALS: BP 92/55
[2020-08-08] MEDS: Enoxaparin 40 MG/0.4 ML SYR SUBCUT SCH (16:31)
== END 2020-08-08 19:50 | disposition home health service (06) | DRG 329 ==
LOC: ED 15:52 → MEDTELE 15:52 → SSU 07-25 19:36
PROVIDERS: ADMIT Internal Medicine; ATTEND Surgery Surgical Critical Care